=== PATIENT | female | born 1985 | race Asian ===

== ENCOUNTER 2016-06-28 00:38 | Inpatient (IN) | payer SELFPAY ==
[~2016-06-28] VITALS: Ht 162.6 cm; Wt 84.4 kg
[2016-06-28] MEDS ORDERED: LACTATED RINGERS 1,000 ML IV SCH (01:02)
[2016-06-28] MEDS ORDERED: NALBUPHINE HYDROCHLORIDE 10 MG/ML VIAL IVP PRN (01:05)
[2016-06-28] MEDS ORDERED: PROMETHAZINE 25 MG/ML VIAL IVP PRN (01:05)
[2016-06-28] MEDS ORDERED: OXYTOCIN 20 UNITS/LR PREMIX 1,000 ML IV SCH (01:05)
[2016-06-28] MEDS ORDERED: OXYTOCIN 10 UNITS/ML VIAL IM ONE (01:05)
[2016-06-28 01:45] LABS: BASOPHILS % (AUTO) 0.7 % (0.0-2.0); EOSINOPHILS # (AUTO) 0.1 K/uL (0-0.4); EOSINOPHILS % (AUTO) 0.9 % (0.0-4.0); HEMATOCRIT 34.1 % (36-48); HEMOGLOBIN 10.8 g/dL (12.0-16.0); LYMPHOCYTES # (AUTO) 1.9 K/uL (2.5-16.5); LYMPHOCYTES % (AUTO) 27.7 % (20.5-51.1); MEAN CORPUSCULAR HEMOGLOBIN 27 pg (27-31); MEAN CORPUSCULAR HGB CONC 32 g/dL (33-37); MEAN CORPUSCULAR VOLUME 84 fL (80-94); MONOCYTES # (AUTO) 0.6 K/uL (0.8-1.0); MONOCYTES % (AUTO) 9.1 % (1.7-9.3); NEUTROPHILS # (AUTO) 4.2 K/uL (1.8-7.7); NEUTROPHILS % (AUTO) 61.6 % (42.2-75.2); PLATELET COUNT (AUTO) 213 K/uL (140-450); RED BLOOD CELL COUNT(AUTO) 4.05 MIL/uL (4.20-5.40); RED CELL DISTRIBUTION WIDTH 16.3 % (11.6-13.7); WHITE BLOOD COUNT (AUTO) 6.9 K/uL (4.8-10.8)
[2016-06-28] MEDS ORDERED: OXYTOCIN 20 UNITS/LR PREMIX 1,000 ML IV ONE (02:23)
[2016-06-28 02:26] LABS: HIV RAPID SCREEN NON-REACTIVE (NON REACTIV)
[2016-06-28 03:20] VITALS: BP 120/78
[2016-06-28] MEDS ORDERED: PREN-546 PO (03:25)
[2016-06-28] MEDS ORDERED: DOCO100C PO (03:25)
[2016-06-28] MEDS ORDERED: LIDOCAINE 1% 500 MG/50 ML VIAL INJ SCH (05:05)
[2016-06-28 07:18] LABS: APPEARANCE,URINE HAZY (CLEAR); BILIRUBIN,URINE NEGATIVE (NEGATIVE); BLOOD, URINE NEGATIVE (NEGATIVE); COLOR,URINE YELLOW (YELLOW); LEUKOCYTE ESTERASE ,URINE NEGATIVE (NEGATIVE); NITRITE, URINE NEGATIVE (NEGATIVE); PROTEIN,URINE NEGATIVE (NEGATIVE); UGLUCOSE NEGATIVE (NEGATIVE); UROBILINOGEN,URINE 0.2 EU/dL (0.2 - 1)
[2016-06-28 07:31] LABS: BACTERIA,URINE 1+ /HPF (None Seen); RBC,URINE 0-5 (RARE) /HPF (0-5); SQUAMOUS EPITHELIAL CELL,UR 4-10 (MOD) /LPF (0-3 (FEW)); WBC,URINE 0-5 (RARE) /HPF (0-5)
--- NOTE | 2016-06-28 10:09 | NUR ---
PATIENT HAS BEEN SCREENED AND CATEGORIZED LOW NUTRITION RISK. PATIENT WILL BE SEEN WITHIN 7 DAYS OF ADMISSION. 07/04/[address]
[2016-06-28] MEDS ORDERED: ROPIVACAINE 0.2%/NS PREMIX 250 ML EPI ONE (13:34)
[2016-06-28] MEDS ORDERED: ROPIVACAINE 0.2%/NS PREMIX 250 ML EPI SCH (13:55)
[2016-06-28] MEDS ORDERED: OXYTOCIN 10 UNITS/ML VIAL ONE (16:29)
[2016-06-28 20:58] LABS: RAPID PLASMA REAGIN NON-REACTIVE (Non Reactiv)
[2016-06-29] MEDS ORDERED: MEASLES, MUMPS, AND RUBELLA 1 VIAL SQVAC PRN (03:10)
[2016-06-29] MEDS ORDERED: OXYTOCIN 10 UNITS/ML VIAL IM PRN (03:10)
[2016-06-29] MEDS ORDERED: IBUPROFEN 800 MG TAB PO PRN (03:10)
[2016-06-29] MEDS ORDERED: TEMAZEPAM 15 MG CAP PO PRN (03:10)
[2016-06-29] MEDS ORDERED: WITCH HAZEL 40 PAD PACKAGE TP PRN (03:10)
[2016-06-29] MEDS ORDERED: HYDROcodone/APAP 5/325 MG 1 TAB TAB PO PRN (03:10)
[2016-06-29] MEDS ORDERED: oxyCODONE/APAP 5/325 MG 1 TAB TAB PO PRN (03:10)
[2016-06-29 07:48] LABS: HEMATOCRIT 34.3 % (36-48); HEMOGLOBIN 11.1 g/dL (12.0-16.0)
[2016-06-29] MEDS ORDERED: SODIUM PHOSPHATE 118 ML ENEM RC PRN (12:10)
[2016-06-29] MEDS ORDERED: DOCUSATE SOD/SENNA 50/8.6 MG 1 TAB PO SCH (21:00)
[2016-06-30] MEDS ORDERED: DOCUSATE SOD/SENNA 50/8.6 MG 1 TAB PO SCH (21:00)
== END 2016-06-30 13:05 | disposition home or self-care (01) | DRG 775 ==
LOC: MLD 00:38 → MFCC 22:10
PROVIDERS: ADMIT Obstetrics & Gynecology; ATTEND Obstetrics & Gynecology
PROC: 10E0XZZ Delivery of Products of Conception, External Approach (ICD-10-PCS; principal; 2016-06-28)
PROC: 10907ZC Drainage of Amniotic Fluid, Therapeutic from Products of Conception, Via Natural or Artificial Opening (ICD-10-PCS; 2016-06-28)
PROC: 00HU33Z Insertion of Infusion Device into Spinal Canal, Percutaneous Approach (ICD-10-PCS; 2016-06-28)
PROC: 3E0R3CZ (ICD-10-PCS; 2016-06-28)
DX: O69.81X0 Labor and delivery complicated by cord around neck, without compression, not applicable or unspecified (principal); O70.0 First degree perineal laceration during delivery; Z3A.38 38 weeks gestation of pregnancy; Z37.0 Single live birth; Z28.21 Immunization not carried out because of patient refusal
CPT/HCPCS: 36415; 81001; 85018; 85025; 86592; 86886; 86900; 86901; 87086; J2590; J2795; J7120